=== PATIENT | male | born 1935 | race Caucasian/White ===

== ENCOUNTER 2016-06-12 16:50 | Emergency (ER) | payer MEDICARE, OTHER ==
[2016-06-12 17:06] VITALS: BP 171/99
--- NOTE | 2016-06-12 17:59 | EDM.PDOC ---
ED HPI Trauma - General Chief Complaint: Upper Extremity Injury/Pain Stated Complaint: RIGHT FINGER LACERATION Time Seen by Provider: 06/12/16 17:26 Source: Reports: Patient History Limitations: Reports: No limitations - History of Present Illness INITIAL COMMENTS - FREE TEXT/NARRATIVE: Patient is a 80 year old male who presents to the E.D. complaining of amputation of distal tip right middle finger. States while pulling treated plywood decking off, hand slipped and the affected finger was cut by a aluminum frame. Bleeding was controlled by direct pressure. Tip of the finger is with the patient in a ziplock bag on ice. States tetanus is up to date. Pain is mild. Denies any additional complaints. Occurred When: just prior to arrival Occurred Where: work Method of Injury: other Pain/Injury Location: Reports: other (Right middle finger) Allergies/ADRs: Allergies No Known Allergies Allergy (Verified 06/12/16 17:06) Home Medications: Ambulatory Orders Acetaminophen [Tylenol Arthritis Pain] 650 mg PO Q6HR PRN 05/18/15 [Confirmed ] Aspirin [Halfprin] 81 mg PO DAILY 05/18/15 [Confirmed 06/12/16] B2/Vit A,C & E/Lut/Zeaxanth/Mn [Icaps] 1 tab PO DAILY 05/18/15 [Confirmed ] Calcium Citrate/Vitamin D3 [Calcium Citrate - Vit D Caplet] 1 tab PO DAILY 05/17 [Confirmed 06/12/16] Carboxymethyl/Glycerin/Poly80 [Refresh Optive Advanced Drops] 1 drop EYEBOTH DAILY 05/18/15 [Confirmed 06/12/16] Flaxseed Oil [Flax Oil] 1,000 mg PO BID 05/18/15 [Confirmed 06/12/16] Folic Acid/Vitamin B Comp W-C [B-Complex with Vit C Caplet] 400 mcg PO DAILY [Confirmed 06/12/16] Gentlesorb Iron 45 mg PO DAILY 05/18/15 [Confirmed 06/12/16] Grape Seed Extract 100 mg PO DAILY 05/18/15 [Confirmed 06/12/16] Levothyroxine [Synthroid] 100 mcg PO DAILY 05/18/15 [Confirmed 06/12/16] Meclizine [Antivert] 25 mg PO Q8HR PRN 05/18/15 [Confirmed 06/12/16] Metoprolol Tartrate [Lopressor] 25 mg PO DAILY 05/18/15 [Confirmed 06/12/16] Ironside-3S/DHA/Epa/Fish Oil [Ironside-3 Fish Oil 1,000 mg Sfgl] 1 tab PO DAILY [Confirmed 06/12/16] Omeprazole 40 mg PO DAILY 05/18/15 [Confirmed 06/12/16] Pravastatin [Pravachol] 40 mg PO DAILY 05/18/15 [Confirmed 06/12/16] Vit D3 & K/Berberine HCl/Hops [Ostera] 2,000 units PO DAILY 05/18/15 [Confirmed 06/12/16] Ascorbic Acid [Vitamin C] 1,000 mg PO DAILY 06/12/16 [Confirmed 06/12/16] Biotin 1,000 mcg PO DAILY 06/12/16 [Confirmed 06/12/16] Cephalexin [Keflex] 500 mg PO TID #30 capsule 06/12/16 Cholecalciferol (Vitamin D3) [Vitamin D3] 2,000 unit PO DAILY 06/12/16 [ Confirmed 06/12/16] Cyanocobalamin (Vitamin B-12) [Vitamin B-12] 1,000 mcg PO DAILY 06/12/16 [ Confirmed 06/12/16] Ezetimibe [Zetia] 10 mg PO BEDTIME 06/12/16 [Confirmed 06/12/16] Gabapentin [Neurontin] 100 mg PO BEDTIME 06/12/16 [Confirmed 06/12/16] Magnesium With Chelated Zinc 1 tab PO DAILY 06/12/16 [Confirmed 06/12/16] SitaGLIPtin [Januvia] 100 mg PO DAILY 06/12/16 [Confirmed 06/12/16] Valsartan 320 mg PO DAILY 06/12/16 [Confirmed 06/12/16] Past Medical History Cardiovascular History: Reports: Pacemaker Respiratory History: Reports: None Genitourinary History: Reports: BPH Other Genitourinary History: prostate surgery Musculoskeletal History: Reports: Arthritis, Osteoarthritis Neurological History: Reports: None Psychiatric History: Reports: None Endocrine/Metabolic History: Reports: None Oncologic (Cancer) History: Reports: None Dermatologic History: Reports: None - Infectious Disease History Infectious Disease History: Reports: None - Past Surgical History HEENT Surgical History: Reports: Cataract surgery, Tonsillectomy GI Surgical History: Reports: Appendectomy Endocrine Surgical History: Reports: Thyroidectomy Neurological Surgical History: Reports: Lumbar spine Social & Family History - Family History Family Medical History: Noncontributory - Tobacco Use Smoking Status *Q: Never Smoker - Caffeine Use Caffeine Use: Reports: None - Recreational Drug Use Recreational Drug Use: No - Living Situation & Occupation Living situation: Reports: Occupation: retired Review of Systems - Review of Systems Review Of Systems: See Below Musculoskeletal: Reports: other (Amputation of the distal tip right middle finger approximately 1 cm) Neurological: Reports: No Symptoms Trauma Exam - Physical Exam Exam: See Below Exam Limited By: No limitations General Appearance: Reports: alert, WD/WN, no apparent distress Ears: Reports: hearing grossly normal Nose: Reports: normal inspection Throat/Mouth: Reports: Normal voice, No airway compromise Neck: Reports: normal inspection Respiratory Exam: Reports: no respiratory distress, no accessory muscle use Cardiovascular: Reports: normal peripheral pulses, regular rate, rhythm Extremities: Reports: other (Right middle finger: 1cm of the tip of finger amputated. Nail bed intact. No bone visualized. Minimal pain present. No other bony abnormalities to fingers/hand/wrist. ) Neurologic: Reports: no motor/sensory deficits, alert, normal mood/affect, oriented x 3 Skin: Reports: Normal color, Warm/dry Course - Vital Signs Last Recorded V/S: Last Vital Signs Temp 97.9 F 06/12/16 16:55 Pulse 72 06/12/16 16:55 Resp 18 06/12/16 16:55 BP 171/99 H 06/12/16 16:55 Pulse Ox 100 06/12/16 16:55 - Orders/Labs/Meds Orders: Active Orders 24 hr Category Date Time Status Fingers Third Digit Rt F7 [CR] Stat Exams 06/12/16 18:10 Taken Meds: Medications Discontinued Medications Generic Name Dose Route Start Last Admin Trade Name Freq PRN Reason Stop Dose Admin Cephalexin 500 mg 06/12/16 18:36 06/12/16 18:59 Keflex PO 06/12/16 18:37 500 mg ONETIME ONE Administration Silver Sulfadiazine 2 gm 06/12/16 19:02 06/12/16 19:18 Silvadene 1% Cream 50 Gm TOP 06/12/16 19:03 1 ml ONETIME ONE Administration - Re-Assessments/Exams Free Text/Narrative Re-Assessment/Exam: 06/12/16 17:45 Ordered x-ray of right middle finger. [address] Lui traffic control officer hand surgeon Luiz Kirkland. States reattaching tip would not be appropriate. Suggested packing wound with silvadene and applying bandage. Discharge home with short course of antibiotics , pain medications, and instructions to call his clinic Wednesday to be seen between the hours of 10 a.m. and noon. Will discharge patient home with instructions and a prescription for Keflex. 06/12/16 18:36 x-ray of the right middle finger revealed a tuft fracture. Keflex 500 mg by mouth ordered. Splint to be applied. Finger tip was sent to pathology. Departure - Departure Time of Disposition: 18:36 Disposition: Home, Self-Care 01 Condition: good Clinical Impression: Open fracture Amputated finger Qualifiers: Encounter type: initial encounter Qualified Code(s): S68.119A - Complete traumatic metacarpophalangeal amputation of unspecified finger, initial encounter Closed fracture of tuft of distal phalanx of finger Qualifiers: Encounter type: initial encounter Qualified Code(s): S62.639A - Displaced fracture of distal phalanx of unspecified finger, initial encounter for closed fracture Prescriptions: Cephalexin [Keflex] 500 mg PO TID #30 capsule Instructions: Finger Fracture, [id number] Referrals: Aaron Walker MD [Primary Care Provider] - Forms: ED Department Discharge Additional Instructions: Keep dressing in place [facility] Call his office at [phone] at 8 a.m. central time to schedule appt to be seen that day between 10-12. Keep dressing clean and dry. Utilize tylenol and ibuprofen in alternating fashion for pain. Elevate when able to reduce swelling and pain. Apply ice to the affected as needed. Return to the E.D. for worsening pain, saturated dressing, or any new/worsening symptoms. Take the keflex as prescribed. - My Orders Last 24 Hours: My Active Orders 06/12/16 18:10 Fingers Third Digit Rt F7 [CR] Stat - Assessment/Plan Last 24 Hours: My Active Orders 06/12/16 18:10 Fingers Third Digit Rt F7 [CR] Stat
[2016-06-12] MEDS ORDERED: Cephalexin 500 MG Cap PO ONE (18:36)
[2016-06-12] MEDS ORDERED: Silver Sulfadiazine 1% Crm 50 GM Tube TOP ONE (19:02)
--- NOTE | 2016-06-13 18:17 | CR ---
Right third finger: Four views of the right third finger were obtained. Soft tissue and bony amputation seen within the distal third finger. Scattered joint space narrowing is seen. No additional acute abnormality is seen. Impression: 1. Soft tissue and bony amputation within the distal third finger. 2. Degenerative change. Diagnostic code #3
== END 2016-06-12 19:25 | disposition home or self-care (01) ==
LOC: JD.ED 16:50
DX: S68.112A Complete traumatic metacarpophalangeal amputation of right middle finger, initial encounter (principal); W45.8XXA Other foreign body or object entering through skin, initial encounter; Y92.69 Other specified industrial and construction area as the place of occurrence of the external cause; Y99.0 Civilian activity done for income or pay; M19.90 Unspecified osteoarthritis, unspecified site; Z90.49 Acquired absence of other specified parts of digestive tract; Z98.49 Cataract extraction status, unspecified eye; Z98.890 Other specified postprocedural states; E89.0 Postprocedural hypothyroidism; Z95.0 Presence of cardiac pacemaker; Z79.899 Other long term (current) drug therapy; Z79.82 Long term (current) use of aspirin
CPT/HCPCS: 73140; 99283; A9270; 99284

== ENCOUNTER 2021-01-30 10:13 | Emergency (ER) | payer MEDICARE, OTHER ==
[2021-01-30] MEDS ORDERED: Sodium Chloride 0.9% 10 ML Syringe FLUSH PRN (10:49)
[2021-01-30 11:21] VITALS: PULSE 65
[2021-01-30 11:22] VITALS: BP 155/71
--- NOTE | 2021-01-30 11:31 | CR ---
Chest: Portable view of the chest was obtained. Comparison: Prior chest x-ray of 05/18/15. Heart size and mediastinum are within normal limits for portable technique. There is a nodular density being seen within the left mid to lower lung. This is not seen on prior chest x-ray. Lungs otherwise are clear. Bichamber pacemaker is noted. Surgical clips are seen on the AP view within the neck or spine within the midline. Impression: 1. Nodular density within the left mid to lower lung. Uncertain if this is artifact or represents pleural calcification or other etiology. Noncontrast chest CT would be needed to differentiate if clinically indicated. 2. Other findings believed to be incidental as noted above. Diagnostic code #3
--- NOTE | 2021-01-30 11:51 | CT ---
Head CT Technique: Multiple axial sections through the brain were obtained. Intravenous contrast was not utilized. Reconstructed coronal and sagittal images were obtained. Comparison: No prior intracranial imaging is available. Findings: Ventricles along with basal cisterns and sulci over the convexities appear mildly prominent. No abnormal parenchymal densities are seen. No evidence of intracranial hemorrhage is seen. No midline shift or mass-effect is seen. Bone window settings were reviewed. The visualized paranasal sinuses and mastoid sinuses show nothing acute. No acute calvarial abnormality is appreciated. Impression: 1. Mild generalized atrophy. No acute abnormality is seen on noncontrast head CT study. Diagnostic code #1
[2021-01-30] MEDS ORDERED: LORazepam 2 MG/ML SDV IVPUSH ONE (12:21)
[2021-01-30] MEDS ORDERED: Metoclopramide 10 MG/2 ML SDV IVPUSH ONE (12:22)
--- NOTE | 2021-01-30 12:29 | EDM.PDOC ---
ED HPI GENERAL MEDICAL PROBLEM - General Chief Complaint: General Stated Complaint: DIZZY/SENT BY WORDEN Time Seen by Provider: 01/30/21 10:48 Source of Information: Reports: Patient History Limitations: Reports: No Limitations - History of Present Illness INITIAL COMMENTS - FREE TEXT/NARRATIVE: 85-year-old male presents the emergency department today with complaints of dizziness/lightheadedness this morning when he was getting his breakfast ready. She states that he does have an issue of intermittent dizziness in the past however it has been contributed to wax buildup in his ears. He states however that the episode he had this morning was significantly different. He states he had gotten up and was getting his breakfast ready in the kitchen when he suddenly felt extremely dizzy. He states he did feel slightly nauseated at that time as well. He denied any diaphoresis or chest discomfort associated with the dizziness. He states then he went and sat down in the recliner and put his feet up and his checked his blood pressure and it was 165 systolic at that time. He states that the dizziness eventually resolved however it has been coming and going ever since. Patient also does complain of a headache at the base of his call and into his neck. However, he states this is chronic in origin and he contributes it to arthritis pain. He denies any change in the characteristics of the headache from his norm. Patient elected to be seen at [facility] and was directed to come to the emergency department for further evaluation and work-up. Patient's primary care provider is . Headache Pain Score (Numeric/FACES): 4 - Related Data Allergies Allergy/AdvReac Type Severity Reaction Status Date / Time No Known Allergies Allergy Verified 01/30/21 10:37 Home Meds: Home Meds Acetaminophen [Tylenol Arthritis Pain] 650 mg PO Q6HR PRN 05/18/15 [History] Aspirin [Halfprin] 81 mg PO DAILY 05/18/15 [History] B2/Vits A,C,E/Lut/Zeaxanth/Min [Icaps] 1 tab PO DAILY 05/18/15 [History] Calcium Citrate/Vitamin D3 [Calcium Citrate - Vit D Caplet] 1 tab PO DAILY 05/18/15 [History] Carboxymethyl/Glycerin/Poly80 [Refresh Optive Advanced Drops] 1 drop EYEBOTH DAILY 05/18/15 [History] Flaxseed Oil [Flax Oil] 1,000 mg PO BID 05/18/15 [History] Folic Acid/Vit B Complex and C [B-Complex with Vit C Caplet] 400 mcg PO DAILY 05/18/15 [History] Gentlesorb Iron 45 mg PO DAILY 05/18/15 [History] Grape Seed Extract 100 mg PO DAILY 05/18/15 [History] Levothyroxine [Synthroid] 100 mcg PO DAILY 05/18/15 [History] Meclizine [Antivert] 25 mg PO Q8HR PRN 05/18/15 [History] Metoprolol Tartrate [Lopressor] 25 mg PO DAILY 05/18/15 [History] Branch-3S/DHA/Epa/Fish Oil [Branch-3 Fish Oil 1,000 mg Sfgl] 1 tab PO DAILY 05/18/15 [History] Omeprazole 40 mg PO DAILY 05/18/15 [History] Pravastatin [Pravachol] 40 mg PO DAILY 05/18/15 [History] Vit D3 & K/Berberine HCl/Hops [Ostera] 2,000 units PO DAILY 05/18/15 [History] Ascorbic Acid [Vitamin C] 1,000 mg PO DAILY 06/12/16 [History] Biotin 1,000 mcg PO DAILY 06/12/16 [History] Cholecalciferol (Vitamin D3) [Vitamin D3] 2,000 unit PO DAILY 06/12/16 [History] Cyanocobalamin (Vitamin B-12) [Vitamin B-12] 1,000 mcg PO DAILY 06/12/16 [History] Ezetimibe [Zetia] 10 mg PO BEDTIME 06/12/16 [History] Gabapentin [Neurontin] 100 mg PO BEDTIME 06/12/16 [History] Magnesium With Chelated Zinc 1 tab PO DAILY 06/12/16 [History] SitaGLIPtin [Januvia] 100 mg PO DAILY 06/12/16 [History] Valsartan 320 mg PO DAILY 06/12/16 [History] cephALEXin [Keflex] 500 mg PO TID #30 capsule 06/12/16 [Rx] Past Medical History Cardiovascular History: Reports: Pacemaker Respiratory History: Reports: None Genitourinary History: Reports: BPH Other Genitourinary History: prostate surgery Musculoskeletal History: Reports: Arthritis, Osteoarthritis Neurological History: Reports: None Psychiatric History: Reports: None Endocrine/Metabolic History: Reports: None Oncologic (Cancer) History: Reports: None Dermatologic History: Reports: None - Infectious Disease History Infectious Disease History: Reports: None - Past Surgical History HEENT Surgical History: Reports: Cataract Surgery, Tonsillectomy GI Surgical History: Reports: Appendectomy Male Surgical History: Reports: Prostatectomy Endocrine Surgical History: Reports: Thyroidectomy Neurological Surgical History: Reports: Lumbar Spine Musculoskeletal Surgical History: Reports: Knee Replacement Other Musculoskeletal Surgeries/Procedures:: x 2 back surgery lumbar area. bilateral knee replacement. hernia repair. Social & Family History - Family History Family Medical History: No Pertinent Family History - Tobacco Use Tobacco Use Status *Q: Never Tobacco User - Caffeine Use Caffeine Use: Reports: None - Recreational Drug Use Recreational Drug Use: No - Living Situation & Occupation Living situation: Reports: Occupation: Retired ED ROS GENERAL - Review of Systems Review Of Systems: Comprehensive ROS is negative, except as noted in HPI. ED EXAM, GENERAL - Physical Exam Exam: See Below Exam Limited By: No Limitations General Appearance: Alert, WD/WN, No Apparent Distress Eye Exam: Bilateral Eye: EOMI, PERRL Ears: Normal External Exam, Normal Canal, Hearing Grossly Normal, Normal TMs Ear Exam: Bilateral Ear: Auricle Normal, Canal Normal, TM normal Nose: Normal Inspection Throat/Mouth: Normal Inspection, Normal Lips, Normal Voice, No Airway Compromise Head: Atraumatic, Normocephalic Neck: Normal Inspection, Supple, Full Range of Motion, Tender Lateral Respiratory/Chest: No Respiratory Distress, Lungs Clear, Normal Breath Sounds, No Accessory Muscle Use, Chest Non-Tender Cardiovascular: Normal Peripheral Pulses, Regular Rate, Rhythm, No Edema, No Murmur Peripheral Pulses: 2+: Radial (L), Radial (R) GI/Abdominal: Normal Bowel Sounds, Soft, Non-Tender, No Distention (Male) Exam: Deferred Rectal (Males) Exam: Deferred Back Exam: Normal Inspection Extremities: Normal Inspection, Normal Range of Motion, Non-Tender, No Pedal Edema, Normal Capillary Refill Neurological: Alert, Oriented, CN II-XII Intact, Normal Cognition Psychiatric: Normal Affect, Normal Mood Skin Exam: Warm, Dry, Intact, Normal Color, No Rash Lymphatic: No Adenopathy #1 Interpretation EKG Date: 01/30/21 Time: 11:23 Rhythm: NSR Rate (Beats/Min): 60 P-Wave: Present EKG Interpretation Comments: Per Dr. Longoria interpretation: AV dual paced rhythm with some inhibition; no ischemia per Scarbossa criteria Course - Vital Signs Text/Narrative:: Full neuro exam was completed and was unremarkable. I am unable to induce any dizziness from the patient when laying flat in the bed, turning his head from side to side or back to center. I do not appreciate any nystagmus associated with this. Once patient is sat back up in bed he does verbalize dizziness and a slight bit of nausea. Tympanic membranes are unremarkable. Remainder of physical exam is unremarkable. Blood pressure is slightly elevated at 162/79 but is otherwise hemodynamically stable. Will obtain a full cardiac work-up to include chest x-ray, EKG, CBC, CMP, magnesium level, troponin and proBNP. We will also obtain a CT of the head to rule out stroke. Last Recorded V/S: Last Vital Signs Temp 96.9 F 01/30/21 10:29 Pulse 65 01/30/21 10:41 Resp 20 01/30/21 10:29 BP 155/71 H 01/30/21 10:42 Pulse Ox 99 01/30/21 10:29 - Orders/Labs/Meds Orders: Active Orders 24 hr Category Date Time Status Sodium Chloride 0.9% [Saline Flush] Med 01/30/21 10:49 Active 10 ml FLUSH ASDIRECTED PRN Saline Lock Insert [OM.PC] Stat Oth 01/30/21 10:49 Ordered Medication Orders Sodium Chloride (Sodium Chloride 0.9% 10 Ml Syringe) 10 ml FLUSH ASDIRECTED PRN PRN Reason: Keep Vein Open Last Admin: 01/30/21 11:22 Dose: 10 ml Documented by: QUANG Labs: Laboratory Tests 01/30/21 01/30/21 01/30/21 Range/Units 11:00 11:00 11:10 WBC 4.43 (4.23-9.07) K/mm3 RBC 4.20 L (4.63-6.08) M/mm3 Hgb 12.9 L (13.7-17.5) gm/dl Hct 39.8 L (40.1-51.0) % MCV 94.8 H (79.0-92.2) fl MCH 30.7 (25.7-32.2) pg MCHC 32.4 (32.2-35.5) g/dl RDW Std Deviation 47.0 H (35.1-43.9) fL Plt Count 165 (163-337) K/mm3 MPV 10.4 (9.4-12.3) fl Neut % (Auto) 65.6 (34.0-67.9) % Lymph % (Auto) 23.7 (21.8-53.1) % Dupage % (Auto) 7.9 (5.3-12.2) % Eos % (Auto) 1.8 (0.8-7.0) Baso % (Auto) 0.5 (0.1-1.2) % Neut # (Auto) 2.91 (1.78-5.38) K/mm3 Lymph # (Auto) 1.05 L (1.32-3.57) K/mm3 Dupage # (Auto) 0.35 (0.30-0.82) K/mm3 Eos # (Auto) 0.08 (0.04-0.54) K/mm3 Baso # (Auto) 0.02 (0.01-0.08) K/mm3 Sodium 145 (136-145) mEq/L Potassium 4.2 (3.5-5.1) mEq/L Chloride 108 H (98-107) mEq/L Carbon Dioxide 29 (21-32) mEq/L Anion Gap 12.2 (5-15) BUN 23 H (7-18) mg/dL Creatinine 1.3 (0.7-1.3) mg/dL Est Cr Clr Drug Dosing 44.77 mL/min Estimated GFR (MDRD) 52 (>60) mL/min BUN/Creatinine Ratio 17.7 (14-18) Glucose 145 H (70-99) mg/dL Calcium 9.0 (8.5-10.1) mg/dL Magnesium 2.0 (1.8-2.4) mg/dL Total Bilirubin 0.6 (0.2-1.0) mg/dL AST 16 (15-37) U/L ALT 22 (16-63) U/L Alkaline Phosphatase 67 (46-116) U/L Troponin I < 0.017 (0.00-0.056) ng/mL NT-Pro-B Natriuret Pep 730 H (0-450) pg/mL Total Protein 6.2 L (6.4-8.2) g/dl Albumin 3.3 L (3.4-5.0) g/dl Globulin 2.9 gm/dL Albumin/Globulin Ratio 1.1 (1-2) Meds: Medications Generic Name Dose Route Start Last Admin Trade Name Freq PRN Reason Stop Dose Admin Sodium Chloride 10 ml 01/30/21 10:49 01/30/21 11:22 Sodium Chloride 0.9% 10 Ml Syringe FLUSH 10 ml ASDIRECTED PRN Administration Keep Vein Open Discontinued Medications Generic Name Dose Route Start Last Admin Trade Name Freq PRN Reason Stop Dose Admin Lorazepam 0.5 mg 01/30/21 12:21 01/30/21 13:11 Lorazepam 2 Mg/Ml Sdv IVPUSH 01/30/21 12:22 0.5 mg ONETIME ONE Administration Metoclopramide HCl 7.5 mg 01/30/21 12:22 01/30/21 13:10 Metoclopramide 10 Mg/2 Ml Sdv IVPUSH 01/30/21 12:23 7.5 mg ONETIME ONE Administration - Radiology Interpretation Free Text/Narrative:: Radiologist impression CT of the head: Ventricles along with basal cisterns and sulci over the convexities appear mildly prominent. No abnormal parenchymal densities are seen. No evidence of intracranial hemorrhage is seen. No midline shift or mass-effect is seen. Bone window settings were reviewed. The visualized paranasal sinuses and mastoid sinuses show nothing acute. No acute calvarial abnormalities appreciated. Impression: Mild generalized atrophy. No acute abnormality is seen on noncontrast head CT study. Radiologist impression portable view of the chest: Heart size and mediastinum are within normal limits for portable technique. There is a nodular density being seen within the left mid to lower lung. This is not seen on prior chest x-ray. Lungs otherwise are clear. Bichamber pacemaker is noted. Surgical clips are seen on the AP view within the neck or spine within the midline. Impression: 1. Nodular density within the left mid to lower lung. Uncertain if this is artifact or represents pleural calcification or other etiology. No ncontrast chest CT would be needed to differentiate if clinically indicated. 2. Other findings believed to be incidental as noted above. - Re-Assessments/Exams Free Text/Narrative Re-Assessment/Exam: 01/30/21 12:40 Hematology reveals a WBC of 4.43, hemoglobin 12.9, hematocrit 39.8, platelet count 165 Chemistry reveals a sodium of 145, potassium 4.2, chloride 108, carbon dioxide 29, anion gap 12.2, BUN 23, creatinine 1.3, GFR 52, glucose 145, calcium 9.0, magnesium 2.0, troponin less than 0.017 proBNP [address] scan, chest x-ray and lab studies with the patient. Patient request to follow-up with Dr. Skye Quiñones for further evaluation of nodular density in the left mid to lower lung. Suspect patient may have acute positional vertigo. We will give him Reglan 7.5 mg IV and Ativan 0.5 mg IV. 01/30/21 13:46 Nursing staff ambulated patient in the uriarte and he states dizziness is significantly better. We will discharge him to home with recommendations that he take meclizine 25 mg every 8 hours for the next 5 days. Departure - Departure Time of Disposition: 13:25 Disposition: Home, Self-Care 01 Condition: Good Clinical Impression: Vertigo - Discharge Information Instructions: Vertigo, [id number] Referrals: Mark Alston MD [Primary Care Provider] - Forms: ED Department Discharge Additional Instructions: You were seen in the emergency department today with complaints of dizziness that occurred this morning. Full cardiac work-up was completed which included chest x-ray, EKG and lab studies. These were all essentially unremarkable. However, as discussed there is a nodule noted on your chest x-ray and you reported that you would rather follow-up with Dr. Alston regarding further evaluation of this. CT scan of the head was also completed and was unremarkable. Suspected that dizziness is due to vertigo. You did receive medications while in the emergency department to abort the vertigo. This did seem to help significantly. You will be discharged home with recommendations that you take an [id number] medication called meclizine 25 mg every 8 hours for the next 5 days. This should help to completely resolve the vertigo. Again, be sure to follow-up with Dr. Alston. Sepsis Event Note (ED) - Evaluation Sepsis Screening Result: No Definite Risk - Focused Exam Vital Signs: Vital Signs Temp Pulse Resp BP Pulse Ox 01/30/21 10:42 155/71 H 01/30/21 10:41 65 157/82 H 01/30/21 10:40 60 155/75 H 01/30/21 10:29 96.9 F 61 20 162/79 H 99 - My Orders Last 24 Hours: My Active Orders 01/30/21 10:49 Sodium Chloride 0.9% [Saline Flush] 10 ml FLUSH ASDIRECTED PRN Saline Lock Insert [OM.PC] Stat - Assessment/Plan Last 24 Hours: My Active Orders 01/30/21 10:49 Sodium Chloride 0.9% [Saline Flush] 10 ml FLUSH ASDIRECTED PRN Saline Lock Insert [OM.PC] Stat
== END 2021-01-30 13:50 | disposition home or self-care (01) ==
LOC: JD.ED 10:13
DX: R42 Dizziness and giddiness (principal); M19.90 Unspecified osteoarthritis, unspecified site; Z79.82 Long term (current) use of aspirin; Z79.899 Other long term (current) drug therapy; Z95.0 Presence of cardiac pacemaker
CPT/HCPCS: 36415; 70450; 71045; 80053; 83735; 83880; 84484; 85025; 93005; 96374; 96375; 99284; J2060; J2765

== ENCOUNTER → 2022-03-19 | Day surgery (SDC) | payer MEDICARE, BC ==
[~2022-03-19] MED LIST: Brimonidine 0.2% Ophth Soln 5 ML Bottle EYEBOTH SCH; Phenylephrine 2.5% Ophth Soln 2 ML Bot EYEBOTH SCH; Tropicamide 1% Ophth Soln 15 ML Bottle EYEBOTH SCH
[2022-03-19] MEDS: Brimonidine 0.2% Ophth Soln 5 ML Bottle EYEBOTH SCH ×2 (14:25→15:15)
[2022-03-19] MEDS: Phenylephrine 2.5% Ophth Soln 2 ML Bot EYEBOTH SCH ×2 (14:28→14:33)
[2022-03-19] MEDS: Tropicamide 1% Ophth Soln 15 ML Bottle EYEBOTH SCH ×2 (14:30→14:36)
[2022-03-19 15:39] VITALS: BP 140/60; PULSE 60
== END ==
LOC: JD.SDS 14:25
PROVIDERS: ATTEND Ophthalmology
DX: E11.36 Type 2 diabetes mellitus with diabetic cataract (principal); H26.493 Other secondary cataract, bilateral; I10 Essential (primary) hypertension; E78.00 Pure hypercholesterolemia, unspecified; E07.9 Disorder of thyroid, unspecified; Z98.890 Other specified postprocedural states
CPT/HCPCS: A9270-GY; J3490

== ENCOUNTER 2023-06-30 11:18 | Emergency (ER) | payer BC, MEDICARE ==
[2023-06-30 11:44] LABS: BASOPHILS PERCENT AUTO 0.6 % (0.0-1.0); EOSINOPHILS ABSOLUTE AUTO 0.1 K/mm3 (0.0-0.4); EOSINOPHILS PERCENT AUTO 1.5 % (0.0-6.0); HEMATOCRIT 40.5 % (42.0-52.0); HEMOGLOBIN 13.4 gm/dl (14.0-18.0); IMMATURE GRAN ABSOLUTE AUTO 0.02 K/mm3 (0.00-0.05); IMMATURE GRAN PERCENT AUTO 0.4 % (0.0-0.4); LYMPHOCYTES ABSOLUTE AUTO 1.5 K/mm3 (1.0-4.8); LYMPHOCYTES PERCENT AUTO 29.3 % (24.0-44.0); MEAN CORPUSCULAR HEMOGLOBIN 30.6 pg (28.0-32.0); MEAN CORPUSCULAR HGB CONC 33.1 g/dl (32.0-36.0); MEAN CORPUSCULAR VOLUME 92.5 fl (83.0-99.0); MEAN PLATELET VOLUME 10.5 fl (9.4-12.4); MONOCYTES ABSOLUTE AUTO 0.5 K/mm3 (0.0-0.8); MONOCYTES PERCENT AUTO 8.6 % (0.0-8.0); NEUTROPHILS ABSOLUTE AUTO 3.1 K/mm3 (1.8-7.7); NEUTROPHILS PERCENT AUTO 59.6 % (41.0-71.0); PLATELET COUNT,PLT 177 K/mm3 (150-400); RED BLOOD CELL COUNT 4.38 M/mm3 (4.52-5.90); WHITE BLOOD CELL COUNT,WBC 5.22 K/mm3 (3.9-11.3)
[2023-06-30 12:01] LABS: A/G RATIO 1.2 (1-2); ALANINE AMINOTRANSFERASE,ALT 26 U/L (16-63); ALBUMIN 3.6 g/dl (3.4-5.0); ALKALINE PHOSPHATASE 76 U/L (46-116); ANION GAP 13.1 (5-15); ASPARTATE AMNIOTRANSFERASE,AST 21 U/L (15-37); BILIRUBIN TOTAL 0.8 mg/dL (0.2-1.0); BLOOD UREA NITROGEN,BUN 20 mg/dL (7-18); BUN/CREATININE RATIO 15.4 (14-18); CALCIUM 8.7 mg/dL (8.5-10.1); CARBON DIOXIDE,CO2 28 mEq/L (21-32); CHLORIDE,CL 104 mEq/L (98-107); CREATININE 1.3 mg/dL (0.7-1.3); ESTIMATED GFR 53 mL/min (>60); GLUCOSE RANDOM 119 mg/dL (70-99); POTASSIUM,K 4.1 mEq/L (3.5-5.1); PROTEIN TOTAL,TP 6.5 g/dl (6.4-8.2); SODIUM,NA 141 mEq/L (136-145); TROPONIN I HIGH SENSITIVITY 10 pg/mL (<=76)
[2023-06-30 12:39] VITALS: PULSE 76
[2023-06-30 12:46] LABS: APPEARANCE,URINE CLEAR (Clear); BILIRUBIN,URINE NEGATIVE (Negative); COLOR,URINE YELLOW (Yellow); GLUCOSE,URINE 2+ (Negative); KETONES,URINE NEGATIVE (Negative); LEUKOCYTE ESTERASE,URINE NEGATIVE (Negative); NITRITE,URINE NEGATIVE (Negative); OCCULT BLOOD,URINE 2+ (Negative); PROTEIN,URINE NEGATIVE (Negative); UROBILINOGEN,URINE 0.2 (0.2-1.0)
[2023-06-30] MEDS: Meclizine 12.5 MG Tab PO ONE (12:52)
[2023-06-30] MEDS: Meclizine 25 MG Tab PO ONE (12:55)
[2023-06-30 13:12] LABS: BACTERIA,URINE FEW /hpf (FEW); EPITHELIAL CELLS,URINE 0-5 /hpf (0-5); MUCUS,URINE FEW /hpf (FEW); WBC,URINE 0-5 /hpf (0-5)
[2023-06-30] MEDS: Ketorolac 30 MG/ML SDV IVPUSH ONE (13:26)
[2023-06-30 15:24] VITALS: BP 155/78
== END 2023-06-30 14:18 | disposition home or self-care (01) ==
LOC: JD.ED 11:18
DX: R42 Dizziness and giddiness (principal); R51.9 Headache, unspecified; I10 Essential (primary) hypertension; E78.00 Pure hypercholesterolemia, unspecified; E11.9 Type 2 diabetes mellitus without complications; M19.90 Unspecified osteoarthritis, unspecified site; Z86.16 Personal history of COVID-19; Z95.0 Presence of cardiac pacemaker; Z79.82 Long term (current) use of aspirin; Z79.899 Other long term (current) drug therapy; Z88.8 Allergy status to other drugs, medicaments and biological substances
CPT/HCPCS: 36415; 70450; 70496; 70498; 80053; 81001; 82947; 83735; 84484; 85025; 93005; 96374; 99284; A9270; J1885; 93010